=== PATIENT | male | born 1935 | race Caucasian/White ===

== ENCOUNTER 2017-04-01 08:57 | Observation (INO) ==
--- NOTE | 2017-04-01 11:47 | History & Physical Report ---
Date of Encounter: 04/01/17 Time of Encounter: 11:44 24 Hour HP Update - Instructions Instructions: If the History and Physical is less than 30 days old and was completed prior to A.M. admission and or procedure and has NOT been updated on calendar day of procedure please complete this update prior to performing procedure. - Update Patient reports changes in Medical Condition: No Changes in examination, assessment, or condition: No Changes in Medication: No Preop tests/diagnostics Reviewed: No - Attending Attestation Pt presents as direct admit for Amiodarone initiation for frequent NSVT noted on device check. Reports diaphoresis during episodes. He was previously on Sotalol, has not taken since evening. Baseline EKG obtained--QT/QTc 462 /484ms. C 02/2017 showed previous patent prox LAD stent, no intervention. Echo 11/2014 EF 20%. ICD in place. Will initiate Amiodarone 200mg BID. Daily EKGs. Will monitor tele. Anticipate monitoring for 2-3 days. Check labs as well.
[2017-04-01] MEDS ORDERED: Nitroglycerin 0.4 MG TAB.SUBL SL PRN (11:51)
[2017-04-01] MEDS ORDERED: Indomethacin 25 MG CAPSULE PO PRN (11:51)
[2017-04-01 12:23] LABS: Basophils # 0.1 K/mcL (0.0-0.2); Eosinophils # 0.5 K/mcL (0.0-0.6); Eosinophils % 5.5 %; Hematocrit 41.9 % (37.5-50.1); Hemoglobin 13.4 g/dL (12.9-16.9); Immature Granulocytes % 0.4 % (0-4); Lymphocytes # 2.1 K/mcL (0.6-4.6); Mean Corpuscular Volume 84.3 fL (83.0-100.0); Mean Platelet Volume 10.2 fL (9.4-12.4); Monocytes # 0.8 K/mcL (0.0-1.3); Monocytes % 8.5 %; Neutrophils # 5.6 K/mcL (1.6-8.9); Platelet Count 299 K/mcL (140-400); Red Blood Count 4.97 M/mcL (4.19-5.50); Red Cell Distribution Width 14.9 % (11.5-14.5); Segmented Neutrophils % 61.6 %
[2017-04-01] MEDS: *HR* Amiodarone 200 MG TABLET PO SCH ×2 (12:26→20:07)
[2017-04-01 12:34] LABS: Calcium 9.6 mg/dL (8.6-10.8); Magnesium 1.8 mg/dL (1.6-2.6); Potassium 4.1 mEq/L (3.5-4.5)
[2017-04-01 12:56] LABS: Thyroid Stimulating Hormone 1.042 mcIU/mL (0.350-4.840)
--- NOTE | 2017-04-01 16:20 | Electrocardiograph Report ---
[place] [id number] Test Date: 2017-04-01 Pat Name: Cresencio Sylvester Department: 111 Room: [facility] Gender: M [employer]: [id number] : 1935 Requested By: Nicanor Villegas Order Number: [id number] Reading MD: Lisa Villegas Measurements Intervals [place] Rate: 71 P: 190 DC: 168 QRS: 176 QRSD: 213 T: 37 QT: 462 QTc: 484 Interpretive Statements ELECTRONIC ATRIAL PACEMAKER ELECTRONIC VENTRICULAR PACEMAKER ABNORMAL RHYTHM ECG Electronically Signed On 04-01-2017 16:18:45 EDT by Lisa Villegas
[2017-04-01] MEDS: *HR* Heparin 5,000 UNIT/ML VIAL SQ SCH (17:33)
[2017-04-01] MEDS: Lisinopril 20 MG TABLET PO SCH (20:07)
[2017-04-01] MEDS ORDERED: Melatonin 3 MG TABLET PO SCH (21:00)
[2017-04-01] MEDS: Acetaminophen 325 MG TABLET PO PRN (21:01)
[2017-04-02] MEDS ORDERED: Melatonin 3 MG TABLET PO STA (00:13)
[2017-04-02] MEDS: *HR* Heparin 5,000 UNIT/ML VIAL SQ SCH ×2 (05:24→17:45)
--- NOTE | 2017-04-02 08:46 | Cardiology Progress Note ---
Date of Encounter: 04/02/17 Time of Encounter: 08:43 Assessment and Plan (1) NSVT (nonsustained ventricular tachycardia) Current Visit: Yes Status: Acute Admitted for Amiodarone initiation for frequent NSVT on device checks. Stopped Sotalol on , Amiodarone started yesterday at 200mg BID. Pt denies any acute complaints. Labs stable. Tele reviewed--no NSVT noted. Idioventricular rhythm noted. Will monitor for 1-2 more days. Possible discharge home tomorrow or Friday. Will monitor daily EKGs. EKG yesterday QTc <500ms. (2) NICM (nonischemic cardiomyopathy) Current Visit: Yes Status: Acute EF 20% on echo in 2014. [facility] 02/2017 showed single vessel CAD with previous patent stent in proximal LAD. ICD in place. Continue TRISHA-I. Will start BB since Sotalol was recently stopped. (3) CAD (coronary artery disease) Current Visit: Yes Status: Acute [facility] 02/2017 patent prior prox LAD stent. ASA, Statin, Plavix. Start BB. Qualifiers: Coronary Disease-Associated Artery/Lesion type: [place] artery [place] vs. transplanted heart: [place] heart Associated angina: without angina Qualified Code(s): I25.10 - Atherosclerotic heart disease of [place] coronary artery without angina pectoris Discussion w patient/family: The assessment and plan as outlined above was discussed with the patient and/or family members who expressed understanding and agreement. All questions were answered. Thank you for involving us in the care of your patient. Please call with any questions. I will discuss all the above with Dr. Nicanor Villegas and make changes as necessary. Subjective Principal diagnosis: NSVT, Amio initiation Interval history: Pt has received 2 doses of Amiodarone. No acute complaints this AM. 24 hour tele AVG HR 71, idioventricular rhythm noted but no NSVT. Objective Vital Signs, Last 4 Hours Temp Pulse Resp BP Pulse Ox 04/02/17 07:38 98 F 69 16 150/90 95 Vital Signs Temp Pulse Resp BP Pulse Ox 04/02/17 07:38 98 F 69 16 150/90 95 04/02/17 03:29 98.3 F 71 14 142/85 95 04/01/17 20:39 98.6 F 77 15 141/79 96 04/01/17 16:45 97.8 F 69 16 149/76 95 04/01/17 10:36 98.2 F 72 16 155/94 95 Intake and Output 04/01/17 04/02/17 04/02/17 23:59 07:59 15:59 Output Total 725 / 725 Balance -725 / -725 Output: Urine 725 / 725 Other: # Voids 2 Weight 78.471 kg 81.1 kg Patient Weight 04/02/17 23:59 Weight 81.1 kg General: Conversant, No Apparent Distress HEENT: Atraumatic, Normocephaly, Mucus Membranes Moist Neck: No JVD, Normal carotid pulses Cardiac: Reg Rate and Rhythm, Normal S1 and S2, No Murmur Lungs: Normal Breath Sounds, No Wheeze, Rales, Rhonchi Neuro: Alert and responsive, No focal deficits noted Abdomen: Soft, Non-Tender Skin: No rashes noted on visualized skin Musculoskeletal: No Chest Wall Tenderness Extremities: No Clubbing, No Cyanosis, No Edema, Normal Pulses Results 04/01/17 12:05 04/01/17 12:05 Lab Results 04/01/17 04/01/17 12:05 12:05 WBC 9.1 Hgb 13.4 Hct 41.9 Plt Count 299 Sodium 141 Potassium 4.1 Chloride 109 Carbon Dioxide 25 BUN 32 H Creatinine 1.54 H Glucose 95 Calcium 9.6 Magnesium 1.8 TSH 1.042 Short CBC 04/01/17 Range/Units 12:05 WBC 9.1 (4.3-11.1) K/mcL Hgb 13.4 (12.9-16.9) g/dL Hct 41.9 (37.5-50.1) % Plt Count 299 (140-400) K/mcL Neutrophils # 5.6 (1.6-8.9) K/mcL BMP 04/01/17 Range/Units 12:05 Sodium 141 (136-145) mEq/L Potassium 4.1 (3.5-4.5) mEq/L Chloride 109 (98-109) mEq/L Carbon Dioxide 25 (19-29) mEq/L BUN 32 H (8-26) mg/dL Creatinine 1.54 H (0.72-1.25) mg/dL Glucose 95 (70-99) mg/dL Calcium 9.6 (8.6-10.8) mg/dL Active Medications Acetaminophen (Tylenol) 325 mg PO Q6HR PRN PRN Reason: Pain Stop: 10/01/17 20:56 Last Admin: 04/01/17 21:01 Dose: 325 mg Amiodarone HCl (Cordarone) 200 mg PO BID [facility] Stop: 10/01/17 12:01 Last Admin: 04/01/17 20:07 Dose: 200 mg Aspirin (Aspirin Ec) 81 mg PO DAILY BEL Stop: 10/02/17 09:01 Clopidogrel Bisulfate (Plavix) 75 mg PO DAILY [facility] Stop: 10/02/17 09:01 Finasteride (Proscar) 5 mg PO DAILY BEL PRN Reason: Protocol Stop: 10/02/17 09:01 Heparin Sodium (Porcine) (Heparin) 5,000 unit SQ Q12HCO [facility] Stop: 10/01/17 18:01 Last Admin: 04/02/17 05:24 Dose: 5,000 unit Indomethacin (Indocin) 50 mg PO DAILY PRN PRN Reason: knee cellulitis Stop: 09/28/17 11:52 Lactobacillus Acidophilus/Rhamnosus (Culturelle) 1 each PO DAILY [facility] Stop: 10/02/17 09:01 Lisinopril (Zestril) 20 mg PO BID BEL PRN Reason: Protocol Stop: 10/01/17 21:01 Last Admin: 04/01/17 20:07 Dose: 20 mg Melatonin (Melatonin) 3 mg PO HS [facility] Stop: 10/01/17 21:01 Last Admin: 04/01/17 20:07 Dose: 3 mg Multivitamins/Calcium (Thera M Plus) 1 tab PO DAILY [facility] Stop: 10/02/17 09:01 Nifedipine (Procardia Xl) 90 mg PO DAILY [facility] Stop: 10/02/17 09:01 Nitroglycerin (Nitroglycerin) 0.4 mg SL AD PRN PRN Reason: Chest Pain Stop: 10/01/17 11:52 Potassium Chloride (Potassium Chloride) 10 meq PO DAILY [facility] Stop: 10/02/17 09:01 Sertraline HCl (Zoloft) 50 mg PO DAILY [facility] Stop: 10/02/17 09:01 Zolpidem Tartrate (Ambien) 5 mg PO HS BEL PRN Reason: Protocol Stop: 10/01/17 21:01 Last Admin: 04/01/17 20:07 Dose: 5 mg - Imaging and Cardiology Echo: report reviewed Cardiac cath: report reviewed - EKG Interpretation EKG results cardiology: other (24 hour tele AVG HR 71, no NSVT noted) Consult Discharge Plan - Plan Referrals: Stefany Tellez, ASSURANCE SENIOR MANAGER [Primary Care Provider] -
[2017-04-02] MEDS: Lisinopril 20 MG TABLET PO SCH ×2 (09:24→20:52)
[2017-04-02] MEDS: NIFEdipine XL (24 HR) 30 MG TAB.ER.24 PO SCH (09:24)
[2017-04-02] MEDS: *HR* Amiodarone 200 MG TABLET PO SCH ×2 (09:24→20:52)
[2017-04-02] MEDS: Lactobacillus 1 EACH CAP.SPRINK PO SCH (09:24)
[2017-04-02] MEDS: Aspirin Enteric Coated 81 MG Tablet PO SCH (09:24)
[2017-04-02] MEDS: Finasteride 5 MG TABLET PO SCH (09:25)
[2017-04-02] MEDS: Multivit/Ca/Min/Fe/FA 1 TAB TABLET PO SCH (09:25)
[2017-04-02] MEDS: Metoprolol XL (24 HR) Succ 25 MG TAB.ER.24H PO SCH (13:11)
--- NOTE | 2017-04-02 14:20 | Electrocardiograph Report ---
[place] [id number] Test Date: 2017-04-02 Pat Name: Cresencio Sylvester Department: 111 Room: [facility] Gender: M [employer]: BRAD : 1935 Requested By: Tyler Acuña Order Number: [id number] Reading MD: Byron Morrow MD Measurements Intervals [place] Rate: 70 P: 228 [place]: 172 QRS: 179 QRSD: 210 T: 33 QT: 470 QTc: 491 Interpretive Statements ELECTRONIC ATRIAL PACEMAKER ELECTRONIC VENTRICULAR PACEMAKER ABNORMAL RHYTHM ECG Electronically Signed On 04-02-2017 14:19:06 EDT by Byron Morrow MD
[2017-04-02] MEDS: Acetaminophen 325 MG TABLET PO PRN ×2 (18:16→23:48)
[2017-04-03] MEDS ORDERED: Melatonin 3 MG TABLET PO SCH
[2017-04-03] MEDS: *HR* Heparin 5,000 UNIT/ML VIAL SQ SCH (05:54)
[2017-04-03 08:05] VITALS: BP 151/97
[2017-04-03] MEDS: *HR* Amiodarone 200 MG TABLET PO SCH (09:09)
[2017-04-03] MEDS: Multivit/Ca/Min/Fe/FA 1 TAB TABLET PO SCH (09:09)
[2017-04-03] MEDS: NIFEdipine XL (24 HR) 30 MG TAB.ER.24 PO SCH (09:09)
[2017-04-03] MEDS: Aspirin Enteric Coated 81 MG Tablet PO SCH (09:09)
[2017-04-03] MEDS: Finasteride 5 MG TABLET PO SCH (09:09)
[2017-04-03] MEDS: Lisinopril 20 MG TABLET PO SCH (09:09)
[2017-04-03] MEDS: Metoprolol XL (24 HR) Succ 25 MG TAB.ER.24H PO SCH (09:09)
[2017-04-03] MEDS: Lactobacillus 1 EACH CAP.SPRINK PO SCH (09:09)
--- NOTE | 2017-04-03 09:18 | Discharge Summary ---
Date of Encounter: 04/03/17 Time of Encounter: 09:15 - Discharge Diagnosis (1) NSVT (nonsustained ventricular tachycardia) Priority: Primary Status: Acute Comments: Admitted for Amiodarone initiation for frequent NSVT on device checks. Stopped Sotalol on , Amiodarone started Friday AM at 200mg BID. Pt denies any acute complaints. Labs stable. Tele reviewed--no NSVT noted. Idioventricular rhythm noted. Daily EKGs while inpt, QTc <500ms. BB started yesterday. Tolerating well. Discharge home in stable condition. Follow-up with Dr. Nicanor Villegas in 2-3 weeks. (2) NICM (nonischemic cardiomyopathy) Priority: Secondary Status: Acute Comments: EF 20% on echo in 2014. [facility] 02/2017 showed single vessel CAD with previous patent stent in proximal LAD. ICD in place. Continue TRISHA-I and BB. (3) CAD (coronary artery disease) Priority: Secondary Status: Acute Comments: [facility] 02/2017 patent prior prox LAD stent. ASA, Statin, Plavix, BB. Qualifiers: Coronary Disease-Associated Artery/Lesion type: [place] artery [place] vs. transplanted heart: [place] heart Associated angina: without angina Qualified Code(s): I25.10 - Atherosclerotic heart disease of [place] coronary artery without angina pectoris - Discharge Medications Prescriptions: Metoprolol XL (24 HR) Succ [Toprol Xl] 25 mg PO DAILY #30 tab.er.24h Home Medications: Aspirin Enteric Coated [Aspirin EC] 81 mg PO DAILY 03/12/17 [History] Clopidogrel [Plavix] 75 mg PO DAILY 03/12/17 [History] Finasteride [Proscar] 5 mg PO DAILY 03/12/17 [History] Indomethacin 50 mg PO DAILY PRN 03/12/17 [History] L. Acidophilus/Bifid. Animalis [One-A-Day Trubiotics Capsule] 1 cap PO DAILY [History] Lisinopril [Zestril] 20 mg PO BID 03/12/17 [History] Melatonin 5 mg PO 0000 03/12/17 [History] Mv-Mn/FA/Vit K/Lycop/Lut/Coq10 [Daily Multivitamin Capsule] 1 cap PO DAILY 03/12 [History] NIFEdipine [Adalat cc] 90 mg PO DAILY 03/12/17 [History] Potassium Chloride [Klor-Con 10] 10 meq PO DAILY 03/12/17 [History] Sertraline [Zoloft] 50 mg PO DAILY 03/12/17 [History] Zolpidem [Ambien] 5 mg PO 0000 03/12/17 [History] Amiodarone [Cordarone] 200 mg PO BID 04/01/17 [History] Nitroglycerin [Nitrostat] 0.4 mg SL AD PRN 04/01/17 [History] Metoprolol XL (24 HR) Succ [Toprol Xl] 25 mg PO DAILY #30 tab.er.24h 04/03/17 [ Rx] Allergies/Adverse Reactions: Allergies No Known Allergies Allergy (Verified 03/12/17 07:44) Procedures/tests Complete & Pending: Procedures Performed prior 72 hours Category Date Time Status ECG 12 lead ECG [ECG] Routine Y 04/01/17 10:56 Completed EKG [ECG 12 lead ECG] [ECG] AM 0600 Y 04/02/17 06:00 Completed Date of admission: 04/01/17 09:57 Primary care physician: Stefany Tellez CNP Discharging clinician: Tyler Acuña Anticipated date of discharge: 04/03/17 - Patient Status Disposition: Home, Self-Care Condition: Good Functional capacity at discharge: independent ambulation Overall status at discharge: patient is back to baseline - Discharge Instructions Follow Up With: Stefany Tellez CNP [Primary Care Provider] - - Diet and Activity Activity: increase activity as tolerated Diet: low fat, low cholesterol, low salt diet - Hospital Course Hospital course: Mr. Sylvester is a 82 year old male admitted for Amiodarone initiation for frequent NSVT on device checks. Stopped Sotalol on , Amiodarone started Friday AM at 200mg BID. Pt denies any acute complaints. Labs stable. Tele reviewed--no NSVT noted. Idioventricular rhythm noted. Daily EKGs while inpt, QTc <500ms. BB started yesterday. Tolerating well. Discharge home in stable condition. Follow- up with Dr. Nicanor Villegas in 2-3 weeks. - Time Spent with Patient Total time spent providing and/or coordinating discharge services: 30 minutes Physical Examination Vital Signs, Last 4 Hours Temp Pulse Resp BP Pulse Ox 04/03/17 08:01 97.6 F 75 16 151/97 97 04/03/17 07:59 94 Vital Signs Temp Pulse Resp BP Pulse Ox 04/03/17 08:01 97.6 F 75 16 151/97 97 04/03/17 07:59 94 04/03/17 04:00 98.1 F 81 16 154/89 94 04/03/17 00:00 98.3 F 73 18 159/81 95 04/02/17 20:00 97.9 F 70 17 132/79 95 04/02/17 16:20 98.1 F 71 16 134/81 95 04/02/17 12:09 96.8 F L 70 16 144/83 95 Intake and Output 04/02/17 04/03/17 04/03/17 23:59 07:59 15:59 Intake Total 0 / 0 300 / 300 Output Total 350 / 350 500 / 500 350 / 350 Balance -350 / -350 -200 / -200 -350 / -350 Intake: Oral 0 / 0 300 / 300 Output: Urine 350 / 350 500 / 500 350 / 350 Other: Stool Size Moderate Stool Consistency soft formed Weight 79.1 kg Patient Weight 04/03/17 23:59 Weight 79.1 kg General: Conversant, No Apparent Distress HEENT: Atraumatic, Normocephaly, Mucus Membranes Moist Neck: No JVD, Normal carotid pulses Cardiac: Reg Rate and Rhythm, Normal S1 and S2, No Murmur Lungs: Normal Breath Sounds, No Wheeze, Rales, Rhonchi Neuro: Alert and responsive, No focal deficits noted Abdomen: Soft, Non-Tender Skin: No rashes noted on visualized skin Musculoskeletal: No Chest Wall Tenderness Extremities: No Clubbing, No Cyanosis, No Edema, Normal Pulses
== END 2017-04-03 11:45 | disposition home or self-care (01) ==
LOC: 2NENU
PROVIDERS: ADMIT Internal Medicine Clinical Cardiac Electrophysiology; ATTEND Internal Medicine Clinical Cardiac Electrophysiology

== ENCOUNTER 2018-11-16 18:43 | Inpatient (IN) ==
--- NOTE | 2018-11-16 19:28 | Emergency Department Note ---
Disposition Clinical Impression: NSTEMI (non-ST elevated myocardial infarction), Acute kidney injury superimposed on chronic kidney disease Pneumonia Qualifiers: Pneumonia type: due to unspecified organism Laterality: bilateral Lung location: unspecified part of lung Qualified Code(s): J18.9 - Pneumonia, unspecified organism CHF (congestive heart failure) Qualifiers: Heart failure type: unspecified Heart failure chronicity: unspecified Qualified Code(s): I50.9 - Heart failure, unspecified Disposition: Admitted As Inpatient Condition: Fair Referrals: Stefany Tellez LITERARY AGENT [Primary Care Provider] - Forms: ED Satisfaction Letter General Adult HPI - General Chief complaint: ED Shortness of Breath/Dyspnea Stated complaint: Bronchitis,Congestion,Cough Time Seen by Provider: 11/16/18 19:07 Source: patient Mode of arrival: private vehicle Limitations: no limitations Nursing Notes Reviewed: Yes Vital Signs Reviewed: Yes - History of Present Illness HPI Narrative: Patient is an 83 year old male with past medical history including atrial ventricular dual pacemaker/defibrillator, on plavix, CAD with 2 stent placement, COPD, hypertension, presenting with chief complaint of cough x2 days. Patient followed up with his PCP two days ago for increased cough. He was clinically diagnosed with bronchitis and was started on zpac which he has taken one day of. He followed up again with his PCP today who is concerned the patient might have fluid on his lungs and advised him come to the ED for further evaluation. Patient is on 2L O2 per NC at home and denies new shortness of breath, denies chest pain, palpitations, fevers, increased lower extremity edema, nausea, vomiting, diarrhea, abdominal pain, no other complaints. Patient states he feels fine. Pain Scale: 0 - Related Data Home Medications Medication Instructions Recorded Confirmed Aspirin Enteric Coated [Aspirin EC] 81 mg PO DAILY 03/12/17 12/30/17 Clopidogrel [Plavix] 75 mg PO DAILY 03/12/17 12/30/17 Finasteride [Proscar] 5 mg PO DAILY 03/12/17 12/30/17 Indomethacin 50 mg PO DAILY PRN 03/12/17 12/30/17 L. Acidophilus/Bifid. Animalis 1 cap PO DAILY 03/12/17 12/30/17 [One-A-Day Trubiotics Capsule] Lisinopril [Zestril] 20 mg PO BID 03/12/17 12/30/17 Melatonin 5 mg PO 0000 03/12/17 12/30/17 Mv-Mn/FA/Vit K/Lycop/Lut/Coq10 1 cap PO DAILY 03/12/17 12/30/17 [Daily Multivitamin Capsule] NIFEdipine [Adalat cc] 90 mg PO DAILY 03/12/17 12/30/17 Potassium Chloride [Klor-Con 10] 10 meq PO DAILY 03/12/17 12/30/17 Sertraline [Zoloft] 50 mg PO DAILY 03/12/17 12/30/17 Zolpidem [Ambien] 5 mg PO 0000 03/12/17 12/30/17 Amiodarone [Cordarone] 200 mg PO BID 04/01/17 12/30/17 Nitroglycerin [Nitrostat] 0.4 mg SL AD PRN 04/01/17 12/30/17 Cephalexin [Keflex] 500 mg PO DAILY PRN 12/30/17 12/30/17 Zinc Acetate [Galzin] 50 mg PO DAILY 12/30/17 12/30/17 Previous Rx's Medication Instructions Recorded Metoprolol XL (24 HR) Succ [Toprol 25 mg PO DAILY #30 tab.er.24h 04/03/17 Xl] Allergies Allergy/AdvReac Type Severity Reaction Status Date / Time No Known Allergies Allergy Verified 04/23/17 15:05 All systems ED: reviewed and negative except as stated. Review of Systems: As Per HPI Constitutional: Denies: fever, chills Eyes: Denies: vision change ENT ED: Denies: congestion Cardiovascular: Denies: chest pain, palpitations Respiratory: Reports: cough. Denies: dyspnea Gastrointestinal: Denies: abdominal pain, nausea, vomiting, diarrhea Genitourinary: Denies: dysuria Musculoskeletal: Denies: back pain Integumentary: Denies: rash Neurological: Denies: headache, weakness Past Medical History - Past Medical History Attestation: Yes The following information was validated with the patient. Source: patient Medical history: Reports: cardiomyopathy, coronary artery disease, hypertension, myocardial infarction, renal disease Surgical history: Reports: knee replacement Psychiatric history: Reports: no psych history - Social History Smoking Status: Never smoker Smokeless Tobacco Status: No Alcohol use: Reports: none Drug use: Reports: none Physical Exam - General Limitations: no limitations General appearance: alert, in no apparent distress - Head Head exam: atraumatic, normocephalic, normal inspection - Eye Eye exam: Present: normal appearance, EOMI - ENT ENT exam: normal exam, normal oropharynx, mucous membranes moist - Neck Neck exam: Present: normal inspection, trachea midline - Chest Chest inspection: Present: normal inspection, symmetric chest wall rise - Respiratory Respiratory exam: Present: normal lung sounds bilaterally, other (no crackles or rhonchi). Absent: respiratory distress, wheezes - Cardiovascular Cardiovascular exam: Present: regular rate, normal rhythm, normal heart sounds - Abdominal Exam Abdominal exam: Present: soft, Non-Tender. Absent: tenderness, distention, guarding, rebound, rigidity - Extremities Exam Extremities exam: Present: normal inspection, full ROM, normal capillary refill. Absent: tenderness, pedal edema, calf tenderness - Neurological Exam Neurological exam: Present: alert, oriented X3 - Psychiatric Psychiatric exam: Present: normal affect, normal mood - Skin Skin exam: Present: warm, dry, intact, other (ecchymosis over chest) Course Vital Signs Temperature 97.4 F L 11/16/18 18:51 Pulse Rate 73 11/16/18 18:51 Respiratory Rate 20 11/16/18 18:51 Blood Pressure 160/86 11/16/18 18:51 O2 Sat by Pulse Oximetry 87 11/16/18 18:51 Temperature 97.4 F L 11/16/18 19:07 Pulse Rate 69 11/16/18 19:58 Respiratory Rate 18 11/16/18 19:58 Blood Pressure 151/88 11/16/18 19:58 O2 Sat by Pulse Oximetry 95 11/16/18 19:58 Oxygen Delivery Oxygen Delivery Nasal Cannula Medical Decision Making - [facility] Narrative Medical decision making narrative: Patient is presenting as his PCP advised him to come to the ED for concern of fluid on the patient's chest. Patient denies any complaints except cough for 2 days. He denies increased oxygen use or increased nebulizer use at home. Denies chest pain, palpitations, increased swelling. Denies SOB. He is not hypoxic and vitals are stable. Lungs sounds clear. He clinically does not appear to be fluid overloaded. Will check EKG as patient has a pacemaker and check 2 view CXR. 19:40 Chest x-ray imaging reviewed. There is a large left pleural effusion with a large aortic knob and deviation of the trachea to the right. Radiology report is pending. Patient denies any pain however we will need to rule out aortic dissection and will obtain CT a dissection protocol. Check CBC, BMP, troponin, BNP. Blood pressure stable at this time. He is also currently on supplemental oxygen. 20:00 Chest x-ray shows multifocal bilateral airspace disease most likely pneumonia, left greater than right. We will obtain blood cultures, lactate and start treatment for community-acquired pneumonia with IV ceftriaxone and IV azithromycin. 20:40 Labs reviewed. Patient's troponin is 0.07. Patient is chest pain-free and he does have chronic kidney disease. Likely secondary to demand ischemia from renal disease versus an NSTEMI. We will give him aspirin. Although contrast would be better to evaluate for vascular abnormality, secondary to patient's GFR and renal disease, will obtain CT chest without contrast. 21:50 CT chest imaging and results reviewed. Bilateral pneumonia with left pleural effusion, he does have elevated BNP and increased in cardiomegaly. We will give 40 mg IV Lasix for CHF. Patient will be admitted for bilateral pneumonia without systemic symptoms, CHF, and elevated troponin. Hospitalist consult at this time. 22:00 Discussed with the hospitalist, , who accepts the patient. Patient remains medically stable at this time. He will go to the telemetry floor. - Medical Records Medical records reviewed: Yes I reviewed the patient's medical records. - Lab Data Lab results reviewed: Yes I reviewed the patient's lab results. Result diagrams: 11/16/18 19:52 11/16/18 19:52 Lab Results 11/16/18 11/16/18 11/16/18 Range/Units 19:52 19:52 19:52 WBC 7.4 (4.3-11.1) K/mcL RBC 4.75 (4.19-5.50) M/mcL Hgb 13.7 (12.9-16.9) g/dL Hct 45.8 (37.5-50.1) % MCV 96.4 (83.0-100.0) fL MCH 28.8 (28.0-33.3) pg MCHC 29.9 L (31.6-35.5) g/dL RDW 16.8 H (11.5-14.5) % Plt Count 271 (140-400) K/mcL MPV 10.7 (9.4-12.4) fL Immature Gran % 0.7 (0-4) % Seg Neutrophils % 76.7 % Lymphocytes % 11.4 % Monocytes % 7.3 % Eosinophils % 3.2 % Basophils % 0.7 % Neutrophils # 5.7 (1.6-8.9) K/mcL Lymphocytes # 0.8 (0.6-4.6) K/mcL Monocytes # 0.5 (0.0-1.3) K/mcL Eosinophils # 0.2 (0.0-0.6) K/mcL Basophils # 0.1 (0.0-0.2) K/mcL PT 10.6 (9.4-12.1) Seconds INR 0.9 APTT 33.1 (26.0-36.0) Seconds Sodium 145 (136-145) mEq/L Potassium 4.3 (3.5-5.1) mEq/L Chloride 109 H (98-107) mEq/L Carbon Dioxide 28 (23-29) mEq/L BUN 34 H (8-23) mg/dL Creatinine 2.42 H (0.70-1.30) mg/dL Est GFR ( Amer) 31 L (> 60) Est GFR (Non-Af Amer) 26 L (> 60) BUN/Creatinine Ratio 14 (6-26) Glucose 106 H (70-105) mg/dL Calculated Osmolality 308 H (280-300) Calcium 10.3 (8.6-10.3) mg/dL Troponin I 0.07 H* (< 0.04) ng/mL B-Natriuretic Peptide (Less than 100) pg/mL 11/16/18 Range/Units 19:52 WBC (4.3-11.1) K/mcL RBC (4.19-5.50) M/mcL Hgb (12.9-16.9) g/dL Hct (37.5-50.1) % MCV (83.0-100.0) fL MCH (28.0-33.3) pg MCHC (31.6-35.5) g/dL RDW (11.5-14.5) % Plt Count (140-400) K/mcL MPV (9.4-12.4) fL Immature Gran % (0-4) % Seg Neutrophils % % Lymphocytes % % Monocytes % % Eosinophils % % Basophils % % Neutrophils # (1.6-8.9) K/mcL Lymphocytes # (0.6-4.6) K/mcL Monocytes # (0.0-1.3) K/mcL Eosinophils # (0.0-0.6) K/mcL Basophils # (0.0-0.2) K/mcL PT (9.4-12.1) Seconds INR APTT (26.0-36.0) Seconds Sodium (136-145) mEq/L Potassium (3.5-5.1) mEq/L Chloride (98-107) mEq/L Carbon Dioxide (23-29) mEq/L BUN (8-23) mg/dL Creatinine (0.70-1.30) mg/dL Est GFR ( Amer) (> 60) Est GFR (Non-Af Amer) (> 60) BUN/Creatinine Ratio (6-26) Glucose (70-105) mg/dL Calculated Osmolality (280-300) Calcium (8.6-10.3) mg/dL Troponin I (< 0.04) ng/mL B-Natriuretic Peptide 487 H (Less than 100) pg/mL - Radiology Data Radiology results reviewed: Yes I reviewed the patient's radiology results. Chest X-Ray 11/16/18 19:07 IMPRESSION: Multifocal bilateral airspace disease most suggestive of pneumonia, more extensive of the left lung. Asymmetric edema is considered less likely. Follow-up to resolution is recommended as there is a focal area of airspace disease within the right mid lung. D/ / Emily Stanley Cha, MD / Emily Stanley Cha, MD Interpreting Provider: Emily Stanley Cha, MD Chest X-Ray 11/16/18 19:07 IMPRESSION: Multifocal bilateral airspace disease most suggestive of pneumonia, more extensive of the left lung. Asymmetric edema is considered less likely. Follow-up to resolution is recommended as there is a focal area of airspace disease within the right mid lung. D/ / Emily Stanley Cha, MD / Emily Stanley Cha, MD Interpreting Provider: Emily Stanley Cha, MD Chest CT 11/16/18 20:45 IMPRESSION: A least moderate cardiomegaly, increased since 2012. A moderate left and trace right pleural effusion. Multifocal bilateral validation patchy airspace disease most compatible with pneumonia. There is some interlobular septal thickening within the lung bases suggesting possible component of edema. D/ / Emily Stanley Cha, MD / Emily Stanley Cha, MD Interpreting Provider: Emily Stanley Cha, MD - EKG Data EKG #1 EKG attestation: Yes I reviewed and interpreted this EKG. EKG results narrative: EKG obtained today at 1914 shows atrial ventricular dual paced rhythm with heart rate 73. MT interval 68. QRS duration 219. No ST elevation or depression is noted. Compared to prior EKG on 12/30/2017. No acute changes. EKG shows normal: sinus rhythm Attestation Statement - Attestation Attestation: I, Dylon Gunter DO, examined this patient [id number] and my medical decision-making was reviewed with Dr. Georgette Farooq , Resident Physician. I agree with the documented findings, disposition and treatment plan as described except to the extent set forth below. Please see my progress notes for details.
--- NOTE | 2018-11-16 19:51 | Emergency Department Note ---
Disposition Clinical Impression: NSTEMI (non-ST elevated myocardial infarction), Acute kidney injury superimposed on chronic kidney disease Pneumonia Qualifiers: Pneumonia type: due to unspecified organism Laterality: bilateral Lung location: unspecified part of lung Qualified Code(s): J18.9 - Pneumonia, unspecified organism CHF (congestive heart failure) Qualifiers: Heart failure type: unspecified Heart failure chronicity: unspecified Qualified Code(s): I50.9 - Heart failure, unspecified Disposition: Admitted As Inpatient Condition: Fair Referrals: Stefany Tellez CNP [Primary Care Provider] - Forms: ED Satisfaction Letter Time of Disposition: 21:54 General Adult HPI - General Chief complaint: ED Shortness of Breath/Dyspnea Stated complaint: Bronchitis,Congestion,Cough Time Seen by Provider: 11/16/18 19:07 Source: patient Mode of arrival: private vehicle Limitations: no limitations - History of Present Illness Pain Scale: 0 - Related Data Home Medications Medication Instructions Recorded Confirmed Aspirin Enteric Coated [Aspirin EC] 81 mg PO DAILY 03/12/17 12/30/17 Clopidogrel [Plavix] 75 mg PO DAILY 03/12/17 12/30/17 Finasteride [Proscar] 5 mg PO DAILY 03/12/17 12/30/17 Indomethacin 50 mg PO DAILY PRN 03/12/17 12/30/17 L. Acidophilus/Bifid. Animalis 1 cap PO DAILY 03/12/17 12/30/17 [One-A-Day Trubiotics Capsule] Lisinopril [Zestril] 20 mg PO BID 03/12/17 12/30/17 Melatonin 5 mg PO 0000 03/12/17 12/30/17 Mv-Mn/FA/Vit K/Lycop/Lut/Coq10 1 cap PO DAILY 03/12/17 12/30/17 [Daily Multivitamin Capsule] NIFEdipine [Adalat cc] 90 mg PO DAILY 03/12/17 12/30/17 Potassium Chloride [Klor-Con 10] 10 meq PO DAILY 03/12/17 12/30/17 Sertraline [Zoloft] 50 mg PO DAILY 03/12/17 12/30/17 Zolpidem [Ambien] 5 mg PO 0000 03/12/17 12/30/17 Amiodarone [Cordarone] 200 mg PO BID 04/01/17 12/30/17 Nitroglycerin [Nitrostat] 0.4 mg SL AD PRN 04/01/17 12/30/17 Cephalexin [Keflex] 500 mg PO DAILY PRN 12/30/17 12/30/17 Zinc Acetate [Galzin] 50 mg PO DAILY 12/30/17 12/30/17 Previous Rx's Medication Instructions Recorded Metoprolol XL (24 HR) Succ [Toprol 25 mg PO DAILY #30 tab.er.24h 04/03/17 Xl] Allergies Allergy/AdvReac Type Severity Reaction Status Date / Time No Known Allergies Allergy Verified 04/23/17 15:05 Constitutional: Denies: fever, chills Eyes: Denies: vision change ENT ED: Denies: congestion Cardiovascular: Denies: chest pain, palpitations Respiratory: Reports: cough. Denies: dyspnea Gastrointestinal: Denies: abdominal pain, nausea, vomiting, diarrhea Genitourinary: Denies: dysuria Musculoskeletal: Denies: back pain Integumentary: Denies: rash Neurological: Denies: headache, weakness Past Medical History - Past Medical History Medical history: Reports: cardiomyopathy, coronary artery disease, hypertension, myocardial infarction, renal disease Surgical history: Reports: knee replacement Psychiatric history: Reports: no psych history - Social History Smoking Status: Never smoker Smokeless Tobacco Status: No Alcohol use: Reports: none Drug use: Reports: none Physical Exam - General Limitations: no limitations General appearance: alert, in no apparent distress Course Vital Signs Temperature 97.4 F L 11/16/18 18:51 Pulse Rate 73 11/16/18 18:51 Respiratory Rate 20 11/16/18 18:51 Blood Pressure 160/86 11/16/18 18:51 O2 Sat by Pulse Oximetry 87 11/16/18 18:51 Temperature 97.4 F L 11/16/18 19:07 Pulse Rate 69 11/16/18 19:58 Respiratory Rate 18 11/16/18 19:58 Blood Pressure 151/88 11/16/18 19:58 O2 Sat by Pulse Oximetry 95 11/16/18 19:58 Oxygen Delivery Oxygen Delivery Nasal Cannula Medical Decision Making - Lab Data Result diagrams: 11/16/18 19:52 11/16/18 19:52 Lab Results 11/16/18 11/16/18 11/16/18 Range/Units 19:52 19:52 19:52 WBC 7.4 (4.3-11.1) K/mcL RBC 4.75 (4.19-5.50) M/mcL Hgb 13.7 (12.9-16.9) g/dL Hct 45.8 (37.5-50.1) % MCV 96.4 (83.0-100.0) fL MCH 28.8 (28.0-33.3) pg MCHC 29.9 L (31.6-35.5) g/dL RDW 16.8 H (11.5-14.5) % Plt Count 271 (140-400) K/mcL MPV 10.7 (9.4-12.4) fL Immature Gran % 0.7 (0-4) % Seg Neutrophils % 76.7 % Lymphocytes % 11.4 % Monocytes % 7.3 % Eosinophils % 3.2 % Basophils % 0.7 % Neutrophils # 5.7 (1.6-8.9) K/mcL Lymphocytes # 0.8 (0.6-4.6) K/mcL Monocytes # 0.5 (0.0-1.3) K/mcL Eosinophils # 0.2 (0.0-0.6) K/mcL Basophils # 0.1 (0.0-0.2) K/mcL PT 10.6 (9.4-12.1) Seconds INR 0.9 APTT 33.1 (26.0-36.0) Seconds Sodium 145 (136-145) mEq/L Potassium 4.3 (3.5-5.1) mEq/L Chloride 109 H (98-107) mEq/L Carbon Dioxide 28 (23-29) mEq/L BUN 34 H (8-23) mg/dL Creatinine 2.42 H (0.70-1.30) mg/dL Est GFR ( Amer) 31 L (> 60) Est GFR (Non-Af Amer) 26 L (> 60) BUN/Creatinine Ratio 14 (6-26) Glucose 106 H (70-105) mg/dL Calculated Osmolality 308 H (280-300) Lactic Acid (0.5-2.2) mmol/L Calcium 10.3 (8.6-10.3) mg/dL Troponin I 0.07 H* (< 0.04) ng/mL B-Natriuretic Peptide (Less than 100) pg/mL 11/16/18 11/16/18 Range/Units 19:52 21:34 WBC (4.3-11.1) K/mcL RBC (4.19-5.50) M/mcL Hgb (12.9-16.9) g/dL Hct (37.5-50.1) % MCV (83.0-100.0) fL MCH (28.0-33.3) pg MCHC (31.6-35.5) g/dL RDW (11.5-14.5) % Plt Count (140-400) K/mcL MPV (9.4-12.4) fL Immature Gran % (0-4) % Seg Neutrophils % % Lymphocytes % % Monocytes % % Eosinophils % % Basophils % % Neutrophils # (1.6-8.9) K/mcL Lymphocytes # (0.6-4.6) K/mcL Monocytes # (0.0-1.3) K/mcL Eosinophils # (0.0-0.6) K/mcL Basophils # (0.0-0.2) K/mcL PT (9.4-12.1) Seconds INR APTT (26.0-36.0) Seconds Sodium (136-145) mEq/L Potassium (3.5-5.1) mEq/L Chloride (98-107) mEq/L Carbon Dioxide (23-29) mEq/L BUN (8-23) mg/dL Creatinine (0.70-1.30) mg/dL Est GFR ( Amer) (> 60) Est GFR (Non-Af Amer) (> 60) BUN/Creatinine Ratio (6-26) Glucose (70-105) mg/dL Calculated Osmolality (280-300) Lactic Acid 0.8 (0.5-2.2) mmol/L Calcium (8.6-10.3) mg/dL Troponin I (< 0.04) ng/mL B-Natriuretic Peptide 487 H (Less than 100) pg/mL Attestation Statement - Attestation Attestation: I, Dylon Gunter DO, examined this patient [id number] and my medical decision-making was reviewed with Dr. Georgette Farooq , Resident Physician. I agree with the documented findings, disposition and treatment plan as described except to the extent set forth below. Please see my progress notes for details. 83-year-old male presents emergency room at the request of his primary care provider for evaluation of cough. They were concerned about possible fluid on lungs. Patient denies any falls trauma or injury. Denies any nausea vomiting or diarrhea. Denies any fevers or chills. Patient has had a cough for the last 2 days. Denies any other symptoms or complaints. Currently denying chest pain, shortness breath, headache, vision changes. Denies any nausea vomiting or diarrhea. Denies any fevers or chills. On arrival here, the patient was using typical oxygen for him. He is requesting to just a simple evaluation completed so he can go home. Patient has a pacemaker in place. He has multiple medical issues including cardiac related disease. Patient otherwise is in no distress. Vital signs are stable on presentation. Blood pressure is noted to be hypertensive at this time. Patient will be monitored closely. Lungs have diminished aeration but is moving appropriately bilaterally. Heart is regular. Pacemaker site appears to be stable. Abdomen is soft. Extremities are normal. Patient is ambulatory in the emergency department and is conversational without any specific dyspnea. Disposition determined after EKG and chest x-ray are resulted. Otherwise patient is denying any symptoms or complaints. See detailed documentation the physical exam, medical intervention, medical decision-making and disposition in the resident physician's note. No critical care applied the patient's treatment course at this time. 2114 Chest x-ray was abnormal. Patient had left sided pleural effusion was noted looks like atelectasis versus pneumonia. Right side also had pleural effusion. Aortic knob was abnormal deviation of the trachea to the right. No visible signs of pneumothorax. Patient has not had any chest pain or other symptoms. His main complaint was cough and sore throat. His troponin was slightly elevated as well as his BNP. He does have chronic renal insufficiency. Unknown whether or not this is all cardiac strain secondary to the pulmonary issues versus other underlying abnormality. CT noncontrasted evaluation of the chest will be established look for any abnormalities with the vascular system best visualized without contrast of this time secondary to his renal function. Pat ient is artery been provided with antibiotics. Lactic acid and blood cultures have been ordered. Patient does not show any acute signs of sepsis outside of the known findings on chest x-ray. Patient will require admission once the imaging modalities are resulted. Patient does not have any acute signs of SIRS or sepsis. He does have a source with pneumonia but otherwise no systemic symptoms [address] Singh. No other recommendations or concerns. Patient has been appropriately treated for the pneumonia. Clinical diagnosis appears to be pneumonia with pleural effusions. Patient is been asymptomatic here. Further evaluation by pulmonology and the hospitalist will be completed. Patient will be monitored in the emergency department until the admission proc ess is completed.
[2018-11-16 20:14] LABS: Basophils # 0.1 K/mcL (0.0-0.2); Basophils % 0.7 %; Eosinophils # 0.2 K/mcL (0.0-0.6); Eosinophils % 3.2 %; Hematocrit 45.8 % (37.5-50.1); Hemoglobin 13.7 g/dL (12.9-16.9); Immature Granulocytes % 0.7 % (0-4); Lymphocytes # 0.8 K/mcL (0.6-4.6); Lymphocytes % 11.4 %; Mean Corpuscular HGB Conc 29.9 g/dL (31.6-35.5); Mean Corpuscular Hemoglobin 28.8 pg (28.0-33.3); Mean Corpuscular Volume 96.4 fL (83.0-100.0); Mean Platelet Volume 10.7 fL (9.4-12.4); Monocytes # 0.5 K/mcL (0.0-1.3); Monocytes % 7.3 %; Neutrophils # 5.7 K/mcL (1.6-8.9); Platelet Count 271 K/mcL (140-400); Red Blood Count 4.75 M/mcL (4.19-5.50); Red Cell Distribution Width 16.8 % (11.5-14.5); Segmented Neutrophils % 76.7 %
[2018-11-16 20:21] LABS: INR 0.9; Prothrombin Time 10.6 Seconds (9.4-12.1)
[2018-11-16 20:24] LABS: Activated Partial Thrombo Time 33.1 Seconds (26.0-36.0)
[2018-11-16 20:31] LABS: Calcium 10.3 mg/dL (8.6-10.3); Potassium 4.3 mEq/L (3.5-5.1)
[2018-11-16 20:40] LABS: Troponin I 0.07 ng/mL (< 0.04)
[2018-11-16] MEDS ORDERED: Aspirin 81 MG TAB.CHEW PO STA (20:41)
[2018-11-16] MEDS ORDERED: Azithromycin 500 MG in D5% in Water 250 ML IVPB ONE (21:00)
[2018-11-16] MEDS ORDERED: cefTRIAXone 2,000 MG in Water for inj. (sterile) 20 ML 20 ML IVP ONE (21:00)
[2018-11-16] MEDS ORDERED: Furosemide 40 MG/4 ML VIAL IVP ONE (21:49)
[2018-11-17] MEDS ORDERED: Ipratropium/Albuterol Neb 3 ML IH PRN (01:55)
[2018-11-17] MEDS ORDERED: Acetaminophen 325 MG TABLET PO PRN (01:55)
[2018-11-17] MEDS ORDERED: Naloxone 0.4 MG/ML INJ IVP PRN (01:55)
[2018-11-17] MEDS ORDERED: Nitroglycerin 0.4 MG TAB.SUBL SL PRN (02:00)
[2018-11-17 02:31] LABS: Basophils # 0.1 K/mcL (0.0-0.2); Basophils % 0.7 %; Eosinophils # 0.4 K/mcL (0.0-0.6); Eosinophils % 5.3 %; Hematocrit 41.9 % (37.5-50.1); Hemoglobin 12.7 g/dL (12.9-16.9); Immature Granulocytes % 0.9 % (0-4); Lymphocytes % 14.3 %; Mean Corpuscular HGB Conc 30.3 g/dL (31.6-35.5); Mean Corpuscular Hemoglobin 29.1 pg (28.0-33.3); Mean Corpuscular Volume 95.9 fL (83.0-100.0); Mean Platelet Volume 10.4 fL (9.4-12.4); Monocytes # 0.5 K/mcL (0.0-1.3); Monocytes % 7.8 %; Neutrophils # 4.9 K/mcL (1.6-8.9); Platelet Count 257 K/mcL (140-400); Red Blood Count 4.37 M/mcL (4.19-5.50); Red Cell Distribution Width 16.7 % (11.5-14.5)
[2018-11-17 02:41] LABS: Activated Partial Thrombo Time 32.9 Seconds (26.0-36.0)
--- NOTE | 2018-11-17 02:50 | Internal Med History&Physical ---
Date of Encounter: 11/17/18 Time of Encounter: 01: Internal Medicine - H&P: HPI Chief complaint: cough, SOB Admitted From: Emergency Dept Plans for Post Hospital Care: Home History of present illness: Mr. Sylvester is a 83 year old male who presents to the ER tonight with complaints of persistent bronchitis in the form of coughing, shortness of breath, and mild wheezing. He was treated with antibiotics by his PCP and completed azithromycin 5 day course. He still was not improving and so he went to see his PCP today who referred him to the ER for concerns of pneumonia. He therefore presented to the ER and had a workup which confirmed pneumonia. He was therefore admitted to the hospitalist service. He also had a bump in his troponin, but he denies any chest pain. On my assessment of the patient, he is resting and sleeping in bed comfortably. He wakes up easily and confirms the above history. He denies any chest pain. He has complained of coughing, productive thick sputum, and some wheezing. He denies any fevers, chills, or night sweats. Appetite has been okay. He he has had no vomiting or diarrhea. He is hopeful to be discharged very soon. Past Med Surg Social Fam HX - Past Medical History Attestation: Yes The following information was validated with the patient. Source: patient, old records reviewed Medical history: cardiomyopathy, coronary artery disease, hypertension, myocardial infarction, renal disease Additional medical history: SYNCOPE, TACHYCARDIA,DVT, CHRONIC RENAL FAILURE, CERVICAL DEGENERATIVE DISC DISEASE, Psychiatric history: no psych history - Past Surgical History Surgical History: knee replacement Additional surgical history: BILAT KNEE REPLACEMENT,BIV PACER/ DEFIBRILLATOR, CARDIAC STENTS X 2, BARIATRIC SURGERY - Social History Smoking Status: Never smoker Smokeless Tobacco Status: No Alcohol use: none Drug use: none Current living situation: Home Activity Level: Independent ambulation, Very active Recent Out of Country Travel Within the Last 8 Weeks: No - Family History Mother Living Status: Hx Family Cardiac Disorders: Yes Hx Family Respiratory Disorders: No Father Living Status: Hx Family Respiratory Disorders: No Internal Medicine - H&P: Meds Aspirin Enteric Coated [Aspirin EC] 81 mg PO DAILY 03/12/17 [History] Clopidogrel [Plavix] 75 mg PO DAILY 03/12/17 [History] Finasteride [Proscar] 5 mg PO DAILY 03/12/17 [History] L. Acidophilus/Bifid. Animalis [One-A-Day Trubiotics Capsule] 1 cap PO DAILY 03/12/17 [History] Lisinopril [Zestril] 20 mg PO BID 03/12/17 [History] Melatonin 10 mg PO HS 03/12/17 [History] NIFEdipine [Adalat cc] 90 mg PO DAILY 03/12/17 [History] Potassium Chloride [Klor-Con 10] 10 meq PO DAILY 03/12/17 [History] Sertraline [Zoloft] 50 mg PO DAILY 03/12/17 [History] Zolpidem [Ambien] 10 mg PO 0000 03/12/17 [History] Amiodarone [Cordarone] 200 mg PO DAILY 04/01/17 [History] Nitroglycerin [Nitrostat] 0.4 mg SL AD PRN 04/01/17 [History] Metoprolol XL (24 HR) Succ [Toprol Xl] 25 mg PO DAILY #30 tab.er.24h 04/03/17 [Rx] Zinc Acetate [Galzin] 50 mg PO DAILY 12/30/17 [History] Acetaminophen [Tylenol Arthritis] 650 mg PO Q8H PRN 11/16/18 [History] Albuterol Sulfate [Ventolin Hfa] 2 puff IH Q4H PRN 11/16/18 [History] Bisacodyl [Dulcolax] 5 mg PO DAILY 11/16/18 [History] Cyanocobalamin (Vitamin B-12) [Vitamin B-12] 1,000 mcg PO DAILY 11/16/18 [History] Guaifenesin 400 mg PO 11/16/18 [History] Psyllium Husk [Fiber] 0.52 gm PO DAILY 11/16/18 [History] Allergy/AdvReac Type Severity Reaction Status Date / Time No Known Allergies Allergy Verified 04/23/17 15:05 - Constitutional Constitutional: fatigue, no chills, no fever(s), no night sweats, no weakness, no weight gain, no weight loss - EENT Eyes: no blurry vision, no change in vision Ears: no ear pain, no tinnitus Nose, mouth and throat: no nasal congestion, no sinus pain, no sore throat - Cardiovascular Cardiovascular ROS IM: edema (trace -- chronic), no chest pain, no lightheadedness, no orthopnea, no paroxysmal nocturnal dyspnea, no syncope - Respiratory Respiratory: cough, dyspnea, wheezing, chest congestion, no hemoptysis, no excessive phlegm production, no change in phlegm color, no pain with cough - Gastrointestinal Gastrointestinal: no abdominal pain, no diarrhea, no hematemesis, no hematochezia, no melena, no vomiting - Genitourinary Genitourinary ROS male: no dysuria, no flank pain, no hematuria - Musculoskeletal Musculoskeletal ROS IM: no arthralgias, no back pain - Integumentary Integumentary IM: no rash, no jaundice - Neurological Neurological ROS: no dizziness, no focal weakness, no frequent falls, no headache(s) - Psychiatric Psychiatric: no anxiety, no depression - Endocrine Endocrine IM: no cold intolerance, no heat intolerance, no polydipsia, no polyphagia, no polyuria - Allergic/Immunologic Allergic/Immunologic: wheezing, no GI upset with certain foods - Constitutional Vitals: Temp Pulse Resp BP Pulse Ox 98 F 74 16 155/100 95 11/16/18 23:48 11/16/18 23:48 11/16/18 23:48 11/16/18 23:48 11/16/18 19:58 General appearance: Present: cooperative, A&O X 3, pleasant, no acute distress, answers questions appropriately Exam: lying flat in bed, sleeping comfortably, no distress - Head Head exam: Present: atraumatic, normal inspection - Eye Eye exam: Present: EOMI, PERRL. Absent: scleral icterus Pupils: Present: normal accommodation - ENT ENT exam: Present: mucous membranes dry, normal exam, normal oropharynx - Neck Neck exam general surgery: Present: full ROM, supple. Absent: tenderness, nuchal rigidity, thyromegaly - Respiratory Respiratory exam: Present: rales (predominantly in left base), rhonchi. Absent: chest wall tenderness, CTAB, respiratory distress, wheezes, tachypnea - Cardiovascular Cardiovascular exam: Present: RRR, +S1, +S2. Absent: diastolic murmur, systolic murmur Additional comments: palpable pacer in left upper chest - GI/Abdominal GI/Abdominal exam: Present: normal bowel sounds, soft. Absent: guarding, hepatomegaly, mass, rebound, splenomegaly, tenderness - Extremities Exam Extremities exam: Present: full ROM, normal capillary refill, pedal edema (trace ), warm, radial pulses palpable and symmetrical. Absent: calf tenderness, tenderness - Back Exam Back exam: Absent: CVA tenderness (L), CVA tenderness (R) - Neurological Exam Neurological exam: Present: alert, CN II-XII intact, oriented X3, no focal deficits, strengths equal and symetr throughout - Psychiatric Psychiatric exam: Present: normal affect, normal mood - Skin Skin exam: Present: dry, intact, warm Internal Med - H&P Results - Labs CBC & Chem 7: 11/17/18 02:16 11/16/18 19:52 Labs: Short CBC 11/16/18 11/17/18 Range/Units 19:52 02:16 WBC 7.4 6.9 (4.3-11.1) K/mcL Hgb 13.7 12.7 L (12.9-16.9) g/dL Hct 45.8 41.9 (37.5-50.1) % Plt Count 271 257 (140-400) K/mcL Neutrophils # 5.7 4.9 (1.6-8.9) K/mcL BMP 11/16/18 19:52 Sodium 145 Potassium 4.3 Chloride 109 H Carbon Dioxide 28 BUN 34 H Creatinine 2.42 H Glucose 106 H Calcium 10.3 Cardiac Enzymes 11/16/18 Range/Units 19:52 Troponin I 0.07 H* (< 0.04) ng/mL - EKG Data -: EKG Interpreted by Myself - EKG Data Prior EKG available for review: yes EKG comments: 11/17/18 02:56 A-V sequential paced rhythm - Impressions ITS Impressions Chest X-Ray 11/16/18 19:07 IMPRESSION: Multifocal bilateral airspace disease most suggestive of pneumonia, more extensive of the left lung. Asymmetric edema is considered less likely. Follow-up to resolution is recommended as there is a focal area of airspace disease within the right mid lung. D/ / Emily Stanley Cha, MD / Emily Stanley Cha, MD Interpreting Provider: Emily Stanley Cha, MD Chest CT 11/16/18 20:45 IMPRESSION: A least moderate cardiomegaly, increased since 2013. A moderate left and trace right pleural effusion. Multifocal bilateral validation patchy airspace disease most compatible with pneumonia. There is some interlobular septal thickening within the lung bases suggesting possible component of edema. D/ / Emily Stanley Cha, MD / Emily Stanley Cha, MD Interpreting Provider: Emily Stanley Cha, MD - Diagnostic Studies Chest x-ray Status: image reviewed by me (bilateral pneumonia) - Assessment and plan (1) Pneumonia Current Visit: Yes Status: Acute Assessment and plan: 1. Blood cultures obtained in ER. 2. Will continue IV Rocephin and Zithromax. 3. Oxygen and aerosols as needed. 4. Close outpatient follow up to resolution. Qualifiers: Pneumonia type: due to unspecified organism Laterality: bilateral Lung location: unspecified part of lung Qualified Code(s): J18.9 - Pneumonia, unspecified organism (2) Acute kidney injury superimposed on chronic kidney disease Current Visit: Yes Status: Acute Assessment and plan: 1. Monitor renal function and fluid balance. 2. Avoid nephrotoxins. 3. Consult nephrology if fails to improve. (3) CAD (coronary artery disease) Current Visit: Yes Status: Chronic Assessment and plan: 1. Will trend troponins and EKG's. 2. Will order ECHO. 3. No clinical signs of angina. 4. Consult cardiology if necessary. Qualifiers: Coronary Disease-Associated Artery/Lesion type: [place] artery [place] vs. transplanted heart: [place] heart Associated angina: without angina Qualified Code(s): I25.10 - Atherosclerotic heart disease of [place] coronary artery without angina pectoris (4) DVT prophylaxis Current Visit: Yes Status: Acute Assessment and plan: 1, Heparin SQ.
[2018-11-17 02:51] LABS: Albumin 3.3 g/dL (3.5-5.7); Albumin/Globulin Ratio 1.2 (1.1-2.2); Bilirubin,Total 0.4 mg/dL (0.3-1.0); Calcium 9.8 mg/dL (8.6-10.3); Chol/HDL Ratio 2.9 (0-4.9); Globulin 2.7 g/dL (2.4-3.5); Magnesium 1.9 mg/dL (1.6-2.6)
[2018-11-17] MEDS: *HR* Heparin 5,000 UNIT/ML VIAL SQ SCH ×2 (05:59→18:24)
[2018-11-17] MEDS: Lactobacillus 1 EACH CAP.SPRINK PO SCH (10:11)
[2018-11-17] MEDS: Finasteride 5 MG TABLET PO SCH (10:11)
[2018-11-17] MEDS: Aspirin Enteric Coated 81 MG Tablet PO SCH (10:11)
[2018-11-17] MEDS: *HR* Amiodarone 200 MG TABLET PO SCH (10:11)
[2018-11-17] MEDS: cefTRIAXone 1,000 MG in Water for inj. (sterile) 20 ML 10 ML IVP SCH (10:11)
[2018-11-17] MEDS: Lisinopril 20 MG TABLET PO SCH ×2 (10:12→21:08)
[2018-11-17] MEDS: Cyanocobalamin (B-12) 1,000 MCG TABLET PO SCH (10:12)
[2018-11-17] MEDS: Metoprolol XL (24 HR) Succ 25 MG TAB.ER.24H PO SCH (10:12)
--- NOTE | 2018-11-17 11:57 | Event Note ---
Date of Encounter: 11/17/18 Time of Encounter: 11:57 Pt admitted for CAP, LAWSON on CKD and Elevated troponin and acute on chronic systolic and diastolic CHF - Pt developed urinary distension, bladder scan showed > 600cc, guardado placed drained 600cc of clear urine - later in the day while sitting to the chair, pt began c/o "feeling to urinate" blood and urine noted around meatus and on floor, and guardado now w/ hematuria pt likely accidently tugged at guardado - RN to flush guardado - start Flomax w/ TOV in 3 days - Will call urology if no improvement in hematuria - renal function slightly better today, pt s/p 40mg IV lasix yesterday, will given 20 mg IV x 1 today and re-eval in am - 2D echo reviewed EF improved from prior (EF documented as 20% in prior cards note)
--- NOTE | 2018-11-17 12:46 | Event Note ---
Date of Encounter: 11/17/18 Time of Encounter: 12:38 - Cardiology Event Note Cardiology asked to evaluate ICD due to extra pacer spikes seen on telemetry. He has a medtronic BIV ICD for known cardiomyopathy s/p recent battery change. He denies ICD shock. Device check shows normal functioning device. Lead miriam urements within range. No ICD shocks. No arrhythmias detected. No changes recommended. F/u scheduled with [facility] to monitor.
[2018-11-17] MEDS ORDERED: Furosemide 20 MG/2 ML VIAL IVP ONE (16:51)
[2018-11-17] MEDS: Doxycycline 100 MG in 0.9 % Sodium Chloride Mini Bag 100 ML IVPB SCH ×2 (17:22→17:23)
--- NOTE | 2018-11-17 18:46 | Electrocardiograph Report ---
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
--- NOTE | 2018-11-17 18:55 | Electrocardiograph Report ---
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
--- NOTE | 2018-11-17 19:50 | Urology - Consult Note ---
Date of Encounter: 11/17/18 Time of Encounter: 19:48 - Assessment and Plan (1) Urinary retention Current Visit: Yes Status: Acute Assessment and plan: Patient has catheter placed and is on Flomax. I manually irrigated the patien t's catheter using a 60 mL's of sterile water. Patient did have some spasms if the irrigation was pushed fast. With slow in and out irrigation the patient's bladder did irrigate well. No obvious clots were returned. We will plan on keeping catheter in place. We will follow-up with patient tomorrow (2) Gross hematuria Current Visit: Yes Status: Acute Assessment and plan: Appears resolving at this time. Okay to continue with anticoagulation at this time (3) Nocturia Current Visit: Yes Status: Acute Assessment and plan: I discussed with the patient cutting back on fluids before bedtime after discha rge. We will plan on continuing patient on Flomax upon discharge. Urology CN:MAVIS Consult date: 11/17/18 Reason for consult Urology: Gross Hematuria Requesting physician: Graham Baez History of present illness: Cresencio is a 83-year-old male admitted to the hospital secondary to pneumonia. Patient had difficulty voiding earlier today and had a bladder scan performed which showed greater than 600 mL's. Catheter was placed successfully without any issues. Patient moved later in the day and had some discomfort from his catheter. It appeared the patient had tugged on his catheter. He had an episode of hematuria and has developed some spasming around his catheter. Patient denies any discomfort in his lower abdomen at this time. Patient does admit to some problems with voiding prior to arrival to the hospital. Patient has been having some nocturia. Patient also with chronic problems of constipation. Past Med Surg Social Fam HX - Past Medical History Medical history: cardiomyopathy, coronary artery disease, hypertension, myocardial infarction, renal disease Additional medical history: SYNCOPE, TACHYCARDIA,DVT, CHRONIC RENAL FAILURE, CERVICAL DEGENERATIVE DISC DISEASE, Psychiatric history: no psych history - Past Surgical History Surgical History: knee replacement Additional surgical history: BILAT KNEE REPLACEMENT,BIV PACER/ DEFIBRILLATOR, CARDIAC STENTS X 2, BARIATRIC SURGERY - Social History Smoking Status: Never smoker Smokeless Tobacco Status: No Alcohol use: none Drug use: none - Family History Mother Living Status: Hx Family Cardiac Disorders: Yes Hx Family Respiratory Disorders: No Father Living Status: Hx Family Respiratory Disorders: No Medications and Allergies Aspirin Enteric Coated [Aspirin EC] 81 mg PO DAILY 03/12/17 [History] Clopidogrel [Plavix] 75 mg PO DAILY 03/12/17 [History] Finasteride [Proscar] 5 mg PO DAILY 03/12/17 [History] L. Acidophilus/Bifid. Animalis [One-A-Day Trubiotics Capsule] 1 cap PO DAILY 03/12/17 [History] Lisinopril [Zestril] 20 mg PO BID 03/12/17 [History] Melatonin 10 mg PO HS 03/12/17 [History] NIFEdipine [Adalat cc] 90 mg PO DAILY 03/12/17 [History] Potassium Chloride [Klor-Con 10] 10 meq PO DAILY 03/12/17 [History] Sertraline [Zoloft] 50 mg PO DAILY 03/12/17 [History] Zolpidem [Ambien] 10 mg PO 0000 03/12/17 [History] Amiodarone [Cordarone] 200 mg PO DAILY 04/01/17 [History] Nitroglycerin [Nitrostat] 0.4 mg SL AD PRN 04/01/17 [History] Metoprolol XL (24 HR) Succ [Toprol Xl] 25 mg PO DAILY #30 tab.er.24h 04/03/17 [Rx] Zinc Acetate [Galzin] 50 mg PO DAILY 12/30/17 [History] Acetaminophen [Tylenol Arthritis] 650 mg PO Q8H PRN 11/16/18 [History] Albuterol Sulfate [Ventolin Hfa] 2 puff IH Q4H PRN 11/16/18 [History] Bisacodyl [Dulcolax] 5 mg PO DAILY 11/16/18 [History] Cyanocobalamin (Vitamin B-12) [Vitamin B-12] 1,000 mcg PO DAILY 11/16/18 [History] Guaifenesin 400 mg PO DAILY 11/16/18 [History] Psyllium Husk [Fiber] 0.52 gm PO DAILY 11/16/18 [History] Allergy/AdvReac Type Severity Reaction Status Date / Time No Known Allergies Allergy Verified 04/23/17 15:05 Review of Systems - Constitutional no chills, no fever(s) - EENT Nose, mouth and throat: no dizziness - Cardiovascular no chest pain, no leg edema - Respiratory cough - Gastrointestinal no abdominal pain, no nausea, no vomiting - Genitourinary as per HPI - Musculoskeletal no back pain, no muscle weakness, no numbness - Integumentary no swelling, no unusual bruising - Neurological no confusion, no sensory deficit, no weakness - Psychiatric no anxiety, no confusion, no depression - Hematologic/Lymphatic no easy bleeding, no lymphadenopathy - Allergic/Immunologic no throat swelling, no wheezing Exam Initial Vital Signs Temp Pulse Resp BP Pulse Ox 97.4 F L 73 20 160/86 87 11/16/18 18:51 11/16/18 18:51 11/16/18 18:51 11/16/18 18:51 11/16/18 18:51 General/Neuological: alert and oriented x 3 Eyes: normal pupils, non-icteric Neck: no lymphadenopathy noted, supple to touch Cardiovascular: RRR, no murmurs Respiratory: normal respiratory effort, clear bilaterally ABD: soft, nontender, no masses palpated, good bowel sounds Back: no pain on percussion bilaterally : normal phallus, normal scrotum, testicles and epididymides normal, urethral meatus normal. With catheter draining clear urine in the tubing Skin: no rashes noted Musculoskeletal: normal gait, FROMx4 Urology Results - Labs 11/17/18 02:16 11/17/18 02:16 Abnormal lab results Hgb 12.7 g/dL (12.9-16.9) L 11/17/18 02:16 MCHC 30.3 g/dL (31.6-35.5) L 11/17/18 02:16 RDW 16.7 % (11.5-14.5) H 11/17/18 02:16 Chloride 108 mEq/L (98-107) H 11/17/18 02:16 Carbon Dioxide 30 mEq/L (23-29) H 11/17/18 02:16 BUN 33 mg/dL (8-23) H 11/17/18 02:16 Creatinine 2.31 mg/dL (0.70-1.30) H 11/17/18 02:16 Est GFR ( Amer) 33 (> 60) L 11/17/18 02:16 Est GFR (Non-Af Amer) 27 (> 60) L 11/17/18 02:16 Calculated Osmolality 303 (280-300) H 11/17/18 02:16 Troponin I 0.09 ng/mL (< 0.04) H* 11/17/18 13:44 B-Natriuretic Peptide 487 pg/mL (Less than 100) H 11/16/18 19:52 Serum Total Protein 6.0 g/dL (6.4-8.9) L 11/17/18 02:16 Albumin 3.3 g/dL (3.5-5.7) L 11/17/18 02:16 HDL Cholesterol 60 mg/dL (40-59) H 11/17/18 02:16 Diabetes panel 11/16/18 11/17/18 Range/Units 19:52 02:16 Sodium 145 143 (136-145) mEq/L Potassium 4.3 4.0 (3.5-5.1) mEq/L Chloride 109 H 108 H (98-107) mEq/L Carbon Dioxide 28 30 H (23-29) mEq/L BUN 34 H 33 H (8-23) mg/dL Creatinine 2.42 H 2.31 H (0.70-1.30) mg/dL Glucose 106 H 93 (70-105) mg/dL Calcium 10.3 9.8 (8.6-10.3) mg/dL AST 36 (13-39) Units/L ALT 25 (7-52) Units/L Alkaline Phosphatase 59 (34-104) Units/L Albumin 3.3 L (3.5-5.7) g/dL Triglycerides 92 (< 150) mg/dL HDL Cholesterol 60 H (40-59) mg/dL Calcium panel 11/16/18 11/17/18 Range/Units 19:52 02:16 Calcium 10.3 9.8 (8.6-10.3) mg/dL Albumin 3.3 L (3.5-5.7) g/dL Pituitary panel 11/16/18 11/17/18 Range/Units 19:52 02:16 Sodium 145 143 (136-145) mEq/L Potassium 4.3 4.0 (3.5-5.1) mEq/L Chloride 109 H 108 H (98-107) mEq/L Carbon Dioxide 28 30 H (23-29) mEq/L BUN 34 H 33 H (8-23) mg/dL Creatinine 2.42 H 2.31 H (0.70-1.30) mg/dL Glucose 106 H 93 (70-105) mg/dL Calcium 10.3 9.8 (8.6-10.3) mg/dL Adrenal panel 11/16/18 11/17/18 Range/Units 19:52 02:16 Sodium 145 143 (136-145) mEq/L Potassium 4.3 4.0 (3.5-5.1) mEq/L Chloride 109 H 108 H (98-107) mEq/L Carbon Dioxide 28 30 H (23-29) mEq/L BUN 34 H 33 H (8-23) mg/dL Creatinine 2.42 H 2.31 H (0.70-1.30) mg/dL Glucose 106 H 93 (70-105) mg/dL Calcium 10.3 9.8 (8.6-10.3) mg/dL Total Bilirubin 0.4 (0.3-1.0) mg/dL AST 36 (13-39) Units/L ALT 25 (7-52) Units/L Alkaline Phosphatase 59 (34-104) Units/L Albumin 3.3 L (3.5-5.7) g/dL All other labs normal. Consult Discharge Plan - Plan Referrals: Stefany Tellez, FA[employer] BRIM POUNCER [Primary Care Provider] -
[2018-11-17] MEDS ORDERED: Azithromycin 500 MG in D5% in Water 250 ML IVPB SCH (21:00)
[2018-11-17] MEDS: Melatonin 3 MG TABLET PO SCH (23:02)
[2018-11-18 00:50] LABS: Bilirubin,Urine Negative (Negative); Blood,Urine Large (Negative); Glucose,Urine (UA) Normal (Normal); Ketones,Urine Negative (Negative); Leukocyte Esterase,Urine Trace (Negative); Nitrite,Urine Negative (Negative); PH,Urine 5.5 pH Units (5.0-8.0); Protein,Urine 100 mg/dL (Neg-Trace); Specific Gravity,Urine 1.013 (1.010-1.025); Urobilinogen,Urine Normal (Normal)
[2018-11-18 00:53] LABS: Clarity,Urine Slightly Cloudy (Clear); Color,Urine Red (Yellow)
[2018-11-18] MEDS: *HR* Heparin 5,000 UNIT/ML VIAL SQ SCH ×2 (05:14→17:35)
[2018-11-18] MEDS: Doxycycline 100 MG in 0.9 % Sodium Chloride Mini Bag 100 ML IVPB SCH ×2 (05:14→17:34)
[2018-11-18] MEDS: Lactobacillus 1 EACH CAP.SPRINK PO SCH (08:32)
[2018-11-18] MEDS: *HR* Amiodarone 200 MG TABLET PO SCH (08:32)
[2018-11-18] MEDS: Finasteride 5 MG TABLET PO SCH (08:32)
[2018-11-18] MEDS: Aspirin Enteric Coated 81 MG Tablet PO SCH (08:32)
[2018-11-18] MEDS: Lisinopril 20 MG TABLET PO SCH ×2 (08:33→21:12)
[2018-11-18] MEDS: Metoprolol XL (24 HR) Succ 25 MG TAB.ER.24H PO SCH (08:33)
[2018-11-18] MEDS: cefTRIAXone 1,000 MG in Water for inj. (sterile) 20 ML 10 ML IVP SCH (08:33)
[2018-11-18] MEDS: Cyanocobalamin (B-12) 1,000 MCG TABLET PO SCH (08:33)
--- NOTE | 2018-11-18 09:19 | Urology Progress Note ---
Date of Encounter: 11/18/18 Time of Encounter: 09:17 - Assessment and Plan (1) Urinary retention Current Visit: Yes Status: Acute Assessment and plan: Plan to keep catheter in place and keep patient on Flomax. Patient scheduled on November 24 at 9:15 for voiding trial. Please call with any questions (2) Gross hematuria Current Visit: Yes Status: Acute Assessment and plan: Is resolving. (3) Nocturia Current Visit: Yes Status: Acute Progress Note Narrative: Patient seen this morning. Patient's urine draining well. No further spasms overnight. Objective Initial Vital Signs Temp Pulse Resp BP Pulse Ox 97.4 F L 73 20 160/86 87 11/16/18 18:51 11/16/18 18:51 11/16/18 18:51 11/16/18 18:51 11/16/18 18:51 - General physical appearance Present: well developed, well nourished - Abdomen Present: soft. Absent: tender - Genitourinary Present: normal penis with no external lesions Urine Appearance: Present: Clear - Labs 11/17/18 02:16 11/17/18 02:16 Consult Discharge Plan - Plan Referrals: Stefany Tellez, CHILD CARE ATTENDANT [Primary Care Provider] -
[2018-11-18 09:32] LABS: Basophils # 0.1 K/mcL (0.0-0.2); Basophils % 0.6 %; Eosinophils # 0.4 K/mcL (0.0-0.6); Eosinophils % 4.7 %; Hematocrit 45.1 % (37.5-50.1); Hemoglobin 13.7 g/dL (12.9-16.9); Immature Granulocytes % 1.4 % (0-4); Lymphocytes # 1.2 K/mcL (0.6-4.6); Lymphocytes % 14.2 %; Mean Corpuscular HGB Conc 30.4 g/dL (31.6-35.5); Mean Corpuscular Hemoglobin 29.5 pg (28.0-33.3); Mean Corpuscular Volume 97.2 fL (83.0-100.0); Mean Platelet Volume 10.5 fL (9.4-12.4); Monocytes # 0.5 K/mcL (0.0-1.3); Monocytes % 6.6 %; Neutrophils # 5.9 K/mcL (1.6-8.9); Platelet Count 257 K/mcL (140-400); Red Blood Count 4.64 M/mcL (4.19-5.50); Red Cell Distribution Width 16.3 % (11.5-14.5); Segmented Neutrophils % 72.5 %
[2018-11-18 09:56] LABS: Calcium 9.8 mg/dL (8.6-10.3); Magnesium 1.9 mg/dL (1.6-2.6); Phosphorous 2.6 mg/dL (2.7-4.5); Potassium 3.9 mEq/L (3.5-5.1)
--- NOTE | 2018-11-18 11:01 | Internal Med Progress Note ---
Hospitalist Progress Note - Encounter Date of Encounter: 11/18/18 Time of Encounter: 11:00 - Subjective Interval History: 83 y/o male with PMHx of Systolic and distolic CHF, CAD, CKD admitted for CAP, LAWSON on CKD and a mild component of Acute on Chronic CHF. Pt seen and examined at bedside. Pt reports he feels much better, had the best sleep he ever had last night (at least since his cough started). Hematuria improved - Exam Vitals: Temp Pulse Resp BP Pulse Ox 97.3 F L 70 17 141/84 97 11/18/18 07:18 11/18/18 07:18 11/18/18 07:18 11/18/18 07:18 11/18/18 07:18 Exam: General - Pt laying flat in bed, NAD HEENT - NC/AT, PERRLA, dry MMM Neck - supple, no LN Lungs - b/l rales at bases, some rhonhci CVS - RRR, nl S1, S2 Abdomen - soft NT/ND, BS+ Ext - no edema, had pedal edema the day prior Skin - this morning pt clinically appears dry, compared to yesterday - Summary of Assessment and Plan Summary of Assessment and Plan: 83 y/o male with PMHx of Systolic and distolic CHF, CAD, CKD admitted for CAP, LAWSON on CKD Assessment and plan Pneumonia with reactive pleural effusion - f/u Blood cultures, sputum and urine for leg, strep cultures - c/w IV Rocephin, Zithromax switched to Doxy due to Prolonged Qtc. - c/u supplemental oxygen (pt on 2L [place] at home) - nebs prn Acute kidney injury superimposed on chronic kidney disease - Per review of chart, pt was in stage 3 however in the last few months GFR more in stage 4, may be pt's new baseline - Cr is bumped from baseline of 1.8 - 2, cont to monitor for now - pt clinically looks dry today, encourage fluid intake - Avoid nephrotoxins. - cont to monitor for now. CAD (coronary artery disease), Mild elevation in troponin - Likely demand due to acute infection, also w/ CKD, mild comp of acute CHF - ECHO reviewed - No chest pain CHF - Questioned possible component of acute CHF the day prior however this morning, pt clinically dry, LE edema noted likely vernous insufficiency (which pt confirms he sometimes has) and BNP likely baseline - Echo reviewed - hold off on further diuretics - cont to monitor I/Os - c/w BB BPH, Urinary retention and hematuria - Appreciate urology consult - hematuria improved - c/w guardado - c/w flomax and proscar - outpt TOV DVT prophylaxis - Heparin SQ. PT eval Dispo - will keep for 1 more day of IV antibitotics (to complete 3 days) given pt failed outpatient therapy and consider possible D/C tiffany - Time Spent with Patient Total time spent is greater than 50% in coordination of care (as documented) at patient's floor/unit and/or counseling patient: Internal Medicine: Result - Labs CBC & Chem 7: 11/18/18 09:06 11/18/18 09:06 Labs: Short CBC 11/18/18 Range/Units 09:06 WBC 8.1 (4.3-11.1) K/mcL Hgb 13.7 (12.9-16.9) g/dL Hct 45.1 (37.5-50.1) % Plt Count 257 (140-400) K/mcL Neutrophils # 5.9 (1.6-8.9) K/mcL BMP 11/18/18 09:06 Sodium 141 Potassium 3.9 Chloride 106 Carbon Dioxide 29 BUN 29 H Creatinine 2.37 H Glucose 149 H Calcium 9.8 Cardiac Enzymes 11/17/18 Range/Units 13:44 Troponin I 0.09 H* (< 0.04) ng/mL Urine 11/18/18 Range/Units 00:22 Urine Color Red A (Yellow) Urine Clarity Slightly Cloudy A (Clear) Urine pH 5.5 (5.0-8.0) pH Units Ur Specific [place] 1.013 (1.010-1.025) Urine Protein 100 H (Neg-Trace) mg/dL Urine Glucose (UA) Normal (Normal) mg/dL - ABG Interpretation ABG results: PT/INR, D-dimer PT 11.0 Seconds (9.4-12.1) 11/17/18 02:16 Consult Discharge Plan - Plan Referrals: Stefany Tellez, DORMITORY SUPERVISOR [Primary Care Provider] -
[2018-11-18] MEDS: Melatonin 3 MG TABLET PO SCH (22:33)
[2018-11-19 04:40] LABS: Basophils # 0.1 K/mcL (0.0-0.2); Basophils % 0.8 %; Eosinophils # 0.5 K/mcL (0.0-0.6); Eosinophils % 6.8 %; Hematocrit 40.3 % (37.5-50.1); Hemoglobin 12.3 g/dL (12.9-16.9); Immature Granulocytes % 0.6 % (0-4); Lymphocytes % 14.9 %; Mean Corpuscular HGB Conc 30.5 g/dL (31.6-35.5); Mean Corpuscular Hemoglobin 29.2 pg (28.0-33.3); Mean Corpuscular Volume 95.7 fL (83.0-100.0); Mean Platelet Volume 10.1 fL (9.4-12.4); Monocytes # 0.5 K/mcL (0.0-1.3); Monocytes % 7.1 %; Neutrophils # 4.6 K/mcL (1.6-8.9); Platelet Count 244 K/mcL (140-400); Red Blood Count 4.21 M/mcL (4.19-5.50); Red Cell Distribution Width 16.4 % (11.5-14.5); Segmented Neutrophils % 69.8 %
[2018-11-19 05:00] LABS: Calcium 9.7 mg/dL (8.6-10.3); Magnesium 1.9 mg/dL (1.6-2.6); Phosphorous 3.1 mg/dL (2.7-4.5); Potassium 3.8 mEq/L (3.5-5.1)
[2018-11-19] MEDS: Doxycycline 100 MG in 0.9 % Sodium Chloride Mini Bag 100 ML IVPB SCH (05:58)
[2018-11-19] MEDS: *HR* Heparin 5,000 UNIT/ML VIAL SQ SCH (05:58)
[2018-11-19 07:39] VITALS: BP 111/65
--- NOTE | 2018-11-19 10:20 | Discharge Summary ---
- NOTES TO OUTPATIENT PROVIDER Notes to Outpatient Provider: Repeat Chest Xray in 6-8 weeks to assess for resolution of PNA. Chemistry panel in 3 days to assess renal function, may need Nephrology referral if no improvement Orders not resulted at time of discharge: Pending orders 11/16/18 21:34 Culture,Blood [BC] Stat 11/18/18 11:24 Legionella Antigen [RM] Routine S. Pneumoniae Antigen [RM] Routine Sputum Culture [Culture,Sputum with Gram Stain] [RM] Routine 11/20/18 04:00 Basic Metabolic Panel AM 0400 Complete Blood Count [HEME] AM 0400 Magnesium AM 0400 Phosphorous AM 0400 11/21/18 04:00 Basic Metabolic Panel AM 0400 Complete Blood Count [HEME] AM 0400 Magnesium AM 0400 Phosphorous AM 0400 Date of Encounter: 11/19/18 Time of Encounter: 10:17 - Discharge Diagnosis (1) Acute kidney injury superimposed on chronic kidney disease Priority: Secondary Status: Acute (2) CHF (congestive heart failure) Priority: Secondary Status: Chronic Qualifiers: Heart failure type: systolic Heart failure chronicity: chronic Qualified Code(s): I50.22 - Chronic systolic (congestive) heart failure (3) Gross hematuria Priority: Secondary Status: Acute (4) Pneumonia Priority: Primary Status: Acute Qualifiers: Pneumonia type: due to unspecified organism Laterality: bilateral Lung location: unspecified part of lung Qualified Code(s): J18.9 - Pneumonia, unsp ecified organism (5) Urinary retention Priority: Secondary Status: Acute Hospital course: Mr. Sylvester is a 83 year old male with PMHx of CHF, NSVT s/p PPM/AICD, CAD, COPD on 2L home oxygen HTN, CAD, CKD stage 3 presented to the ED with cough, SOB found with multifocal bilateral community acquired pneumonia with moderate left and trace right pleural effusion. Pt also found with LAWSON on CKD as well as NSTEMI. Pt started on IV Rocephin and Azithromycin. NSTEMI likely type 2 due to demand ischemia in the setting of PNA, with troponin peak at 0.09. Pt had a 2D Echo done which showed improved EF of 30 - 35% compared to previous documentation. Renal function improved however not back at baseline, will continue to encourage fluid intake and will need outpatient follow up. Hospital course complicated by urinary retention. A guardado was placed, patient started on Flomax, continued on Poscar and patient initially did well however later developed hematuria after likely accidentally tugging at guardado. Urology consulted and pt improved. Pt will be discharged with guardado and will need outpatient follow up with urology for TOV. Pt medically stable for discharge. - Time Spent with Patient Total time spent providing and/or coordinating discharge services: - Discharge Medications Prescriptions: Cefdinir [Omnicef] 300 mg PO BID #14 capsule Tamsulosin [Flomax] 0.4 mg PO DAILY #10 capsule Home Medications: Aspirin Enteric Coated [Aspirin EC] 81 mg PO DAILY 03/12/17 [History] Clopidogrel [Plavix] 75 mg PO DAILY 03/12/17 [History] Finasteride [Proscar] 5 mg PO DAILY 03/12/17 [History] L. Acidophilus/Bifid. Animalis [One-A-Day Trubiotics Capsule] 1 cap PO DAILY 03/12/17 [History] Lisinopril [Zestril] 20 mg PO BID 03/12/17 [History] Melatonin 10 mg PO HS 03/12/17 [History] NIFEdipine [Adalat cc] 90 mg PO DAILY 03/12/17 [History] Sertraline [Zoloft] 50 mg PO DAILY 03/12/17 [History] Zolpidem [Ambien] 10 mg PO 0000 03/12/17 [History] Amiodarone [Cordarone] 200 mg PO DAILY 04/01/17 [History] Nitroglycerin [Nitrostat] 0.4 mg SL AD PRN 04/01/17 [History] Metoprolol XL (24 HR) Succ [Toprol Xl] 25 mg PO DAILY #30 tab.er.24h 04/03/17 [Rx] Zinc Acetate [Galzin] 50 mg PO DAILY 12/30/17 [History] Acetaminophen [Tylenol Arthritis] 650 mg PO Q8H PRN 11/16/18 [History] Albuterol Sulfate [Ventolin Hfa] 2 puff IH Q4H PRN 11/16/18 [History] Bisacodyl [Dulcolax] 5 mg PO DAILY 11/16/18 [History] Cyanocobalamin (Vitamin B-12) [Vitamin B-12] 1,000 mcg PO DAILY 11/16/18 [History] Guaifenesin 400 mg PO DAILY 11/16/18 [History] Psyllium Husk [Fiber] 0.52 gm PO DAILY 11/16/18 [History] Cefdinir [Omnicef] 300 mg PO BID #14 capsule 11/19/18 [Rx] Ipratropium/Albuterol Neb [Duoneb] 3 ml IH [id number] PRN inhsol 11/19/18 [Rx] Tamsulosin [Flomax] 0.4 mg PO DAILY #10 capsule 11/19/18 [Rx] Allergies/Adverse Reactions: Allergy/AdvReac Type Severity Reaction Status Date / Time No Known Allergies Allergy Verified 04/23/17 15:05 Date of admission: 11/17/18 01:55 Primary care physician: Stefany Tellez CNP Consults: 11/17/18 16:09 Consult to Nurse Navigator [CONS] Routine Comment: Pneumonia 11/17/18 18:26 Consult to Urology [CONS] Routine Consulting Provider: Urology Jody Reason for Consult: urinary retention, hematuria Call Completed: Yes 11/18/18 11:15 Consult to Physical Therapy [CONS] Routine Comment: Evaluate, develop and implement POC Reason for Consult: acute illness, weakness Does patient have active BEDREST order?: No Is patient medically & hemodynamically stable?: Yes - Constitutional Vitals: Temp Pulse Resp BP Pulse Ox 97.6 F 69 17 111/65 98 11/19/18 07:37 11/19/18 07:37 11/19/18 07:37 11/19/18 07:37 11/19/18 07:37 General appearance: Present: cooperative, A&O X 3, pleasant, no acute distress, answers questions appropriately Exam: General - Pt laying flat in bed, NAD HEENT - NC/AT, PERRLA, dry MMM Neck - supple, no LN Lungs - faint b/l rales at bases CVS - RRR, nl S1, S2 Abdomen - soft NT/ND, BS+ Ext - no edema - + guardado w/ scant hematuria Skin - dry warm, no rashes - Patient Status Disposition: Home, Self-Care Condition: Good Overall status at discharge: patient is progressing back to baseline - Discharge Instructions Instructions: Pneumonia (DC) Follow Up With: Stefany Tellez CNP [Primary Care Provider] - (please call the office when you get home and make a follow up appointment for 5-7 days) Urology [Other] - Diet and Activity Activity: increase activity as tolerated Diet: advance to your usual diet
[2018-11-19] MEDS ORDERED: 0.9 % Sodium Chloride 500 ML IVC SCH (11:00)
[2018-11-19] MEDS: Lactobacillus 1 EACH CAP.SPRINK PO SCH (11:10)
[2018-11-19] MEDS: *HR* Amiodarone 200 MG TABLET PO SCH (11:11)
[2018-11-19] MEDS: Metoprolol XL (24 HR) Succ 25 MG TAB.ER.24H PO SCH (11:11)
[2018-11-19] MEDS: Aspirin Enteric Coated 81 MG Tablet PO SCH (11:12)
[2018-11-19] MEDS: Cyanocobalamin (B-12) 1,000 MCG TABLET PO SCH (11:12)
[2018-11-19] MEDS: cefTRIAXone 1,000 MG in Water for inj. (sterile) 20 ML 10 ML IVP SCH (11:12)
[2018-11-19] MEDS: Lisinopril 20 MG TABLET PO SCH (11:12)
[2018-11-19] MEDS: Finasteride 5 MG TABLET PO SCH (11:12)
[2018-11-19 14:13] LABS: BUN/Creatinine Ratio 13 (6-26); Blood Urea Nitrogen 29 mg/dL (8-23); eGFR For Non-African Americans 28 (> 60)
[2018-11-19] MEDS ORDERED: Doxycycline 100 MG CAPSULE PO SCH (21:00)
== END 2018-11-19 17:33 | disposition home or self-care (01) | DRG 193 ==
LOC: EMEROOARM 18:43 → 2NENU 18:43 → SUATTDRO 11-17 01:55
PROVIDERS: ADMIT Pediatrics; ATTEND Hospitalist

== ENCOUNTER 2019-08-23 16:14 | Observation (INO) ==
[2019-08-23 17:22] LABS: Basophils % 0.4 %; Eosinophils # 0.1 K/mcL (0.0-0.6); Eosinophils % 1.1 %; Hematocrit 30.2 % (37.5-50.1); Hemoglobin 9.9 g/dL (12.9-16.9); Immature Granulocytes % 0.4 % (0-4); Lymphocytes % 11.1 %; Mean Corpuscular HGB Conc 32.8 g/dL (31.6-35.5); Mean Corpuscular Hemoglobin 30.6 pg (28.0-33.3); Mean Corpuscular Volume 93.2 fL (83.0-100.0); Monocytes # 0.5 K/mcL (0.0-1.3); Monocytes % 5.5 %; Platelet Count 177 K/mcL (140-400); Red Blood Count 3.24 M/mcL (4.19-5.50); Segmented Neutrophils % 81.5 %; White Blood Count 8.6 K/mcL (4.3-11.1)
[2019-08-23 17:49] LABS: Troponin I 0.2 ng/mL (< 0.04)
[2019-08-23 17:51] LABS: Calcium 9.6 mg/dL (8.6-10.3); Potassium 3.9 mEq/L (3.5-5.1)
[2019-08-24] MEDS ORDERED: Naloxone 0.4 MG/ML INJ IVP PRN (00:16)
[2019-08-24] MEDS: Melatonin 3 MG TABLET PO SCH ×2 (02:07→20:36)
[2019-08-24 06:26] LABS: Hematocrit 26.7 % (37.5-50.1); Hemoglobin 8.9 g/dL (12.9-16.9); Mean Corpuscular HGB Conc 33.3 g/dL (31.6-35.5); Mean Corpuscular Hemoglobin 31.3 pg (28.0-33.3); Mean Platelet Volume 12.2 fL (9.4-12.4); Platelet Count 153 K/mcL (140-400); Red Blood Count 2.84 M/mcL (4.19-5.50); White Blood Count 6.1 K/mcL (4.3-11.1)
[2019-08-24 06:47] LABS: Calcium 9.2 mg/dL (8.6-10.3); Potassium 3.7 mEq/L (3.5-5.1)
[2019-08-24] MEDS ORDERED: Ipratropium/Albuterol Neb 3 ML IH PRN (07:46)
[2019-08-24] MEDS ORDERED: Sennosides/Docusate Sodium TABLET PO PRN (07:47)
[2019-08-24] MEDS: Finasteride 5 MG TABLET PO SCH (09:01)
[2019-08-24] MEDS: *HR* Amiodarone 200 MG TABLET PO SCH (09:01)
[2019-08-24] MEDS: Aspirin Enteric Coated 81 MG Tablet PO SCH (09:01)
[2019-08-24] MEDS: *HR* Heparin 5,000 UNIT/ML VIAL SQ SCH (17:13)
[2019-08-25] MEDS: *HR* Heparin 5,000 UNIT/ML VIAL SQ SCH ×2 (05:48→18:04)
[2019-08-25] MEDS: *HR* Amiodarone 200 MG TABLET PO SCH (08:05)
[2019-08-25] MEDS: Aspirin Enteric Coated 81 MG Tablet PO SCH (08:05)
[2019-08-25] MEDS: Finasteride 5 MG TABLET PO SCH (08:05)
[2019-08-25] MEDS: Metoprolol XL (24 HR) Succ 25 MG TAB.ER.24H PO SCH (13:25)
[2019-08-25] MEDS ORDERED: Melatonin 3 MG TABLET PO SCH (23:00)
[2019-08-26] MEDS: *HR* Heparin 5,000 UNIT/ML VIAL SQ SCH (06:40)
[2019-08-26 07:18] VITALS: BP 115/72
[2019-08-26] MEDS: Metoprolol XL (24 HR) Succ 25 MG TAB.ER.24H PO SCH (09:05)
[2019-08-26] MEDS: Finasteride 5 MG TABLET PO SCH (09:06)
[2019-08-26] MEDS: *HR* Amiodarone 200 MG TABLET PO SCH (09:07)
[2019-08-26] MEDS: Aspirin Enteric Coated 81 MG Tablet PO SCH (09:07)
== END 2019-08-26 14:42 | disposition hospice, home (50) ==
LOC: EMEROOARM 16:14 → 2ANU 16:14 → SUATTDRO 21:08 → 2ANU 22:28
PROVIDERS: ADMIT Internal Medicine; ATTEND Internal Medicine